=== PATIENT | male | born 2000 | race Caucasian/White ===

== ENCOUNTER 2021-03-23 12:11 | Emergency (ER) | payer OTHER, SELFPAY ==
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
--- NOTE | ~2021-03-23 | XR_ITS ---
EXAMINATION: XR hand RT min 3V INDICATION: Right hand pain, initial encounter TECHNIQUE: Three views of the right hand are obtained. COMPARISON: None available FINDINGS: There is a subtle acute, traumatic, closed fracture of the distal fifth metacarpal. There i s minimal palmar angulation at the fracture site. Soft tissue swelling is seen near the fracture. The joint spaces are normal. No additional acute osseous abnormality is identified. IMPRESSION: 1. Subtle acute fracture of the distal fifth metacarpal with palmar angulation. Reviewed, dictated and finalized at location [facility].
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
[2021-03-23 12:32] VITALS: BP 137/79; PULSE 16; RESP 66; TEMP 36.2; O2SAT 100
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
[2021-03-23 13:09] LABS: Basophils Percent Auto 0.4 % (0.2-1.2); Eosinophils Percent Auto 0.5 % (0-4.4); Hematocrit 39.9 % (42.0-52.0); Hemoglobin 13.5 g/dL (14.0-18.0); Immature Granulocyte Absolute 0.02 K/mm3 (0.00-0.031); Immature Granulocyte Percent A 0.3 % (0-0.5); Lymphocytes Absolute Auto 2.18 K/mm3 (0.9-3.2); Lymphocytes Percent Auto 29.8 % (18.3-44.2); Mean Corpuscular HGB Conc 33.8 g/dl (32-36); Mean Corpuscular Hemoglobin 29.8 pg (26-34); Mean Corpuscular Volume 88.1 fl (80-100); Mean Platelet Volume 10.4 fl (7.4-10.4); Monocytes Absolute Auto 0.4 K/mm3 (0.1-0.6); Monocytes Percent Auto 5.3 % (2.6-8.5); Neutrophils Absolute Auto 4.7 K/mm3 (1.3-6.7); Neutrophils Percent Auto 63.7 % (45.5-73.1); Platelet Count Result 239 k/mm3 (150-375); Red Blood Count 4.53 M/mm3 (4.6-6.20); Red Cell Distribution Width 12.5 % (11.5-14.5); White Blood Count 7.3 K/mm3 (4.5-10.0)
[2021-03-23 13:18] LABS: Alanine Aminotransferase 19 U/L (4-50); Albumin Level 4.3 g/dL (3.5-5.1); Alkaline Phosphatase 81 U/L (38-126); Anion Gap 5 mmol/L (8-16); Aspartate Amino Transferase 28 U/L (17-59); Bilirubin,Total 0.7 mg/dL (0.2-1.3); Blood Urea Nitrogen 9 mg/dL (9-20); Calcium 9.5 mg/dL (8.4-10.2); Carbon Dioxide 29 mmol/L (22-30); Chloride 109 mmol/L (98-107); Estimated CRCL calculation 122 ml/min; Estimated Glomerular Filt Rate > 60; Glucose 92 mg/dL (65-110); Potassium 3.6 mmol/L (3.4-5.0); Sodium 143 mmol/L (137-145)
--- NOTE | 2021-03-23 15:09 | PC.NURSE ---
ED MD AWARE PT REQUESTED PAIN MEDS FROM CT. NO FURTHER ORDERS AT THIS TIME.
[2021-03-23] MEDS: CYCLOBENZAPRINE HCL 10 MG TABLET PO (15:42)
[2021-03-23] MEDS: KETOROLAC 30 MG/ML VIAL (*BKC) IV PUSH (15:42)
--- NOTE | 2021-03-27 11:07 | PC.NURSE ---
LATE ENTRY This note is being entered to document information to the patient's record. The following information was omitted on [03/23/2021], by [Alban Baird RN]. R hand 5th digit aluminum finger splint placed.
== END 2021-03-23 16:35 | disposition home or self-care (01) ==
PROVIDERS: Emergency Provider Emergency Medicine; PCP Family Medicine
DX: S00.93XA Contusion of unspecified part of head, initial encounter (principal); S16.1XXA Strain of muscle, fascia and tendon at neck level, initial encounter; S29.011A Strain of muscle and tendon of front wall of thorax, initial encounter; S62.396A Other fracture of fifth metacarpal bone, right hand, initial encounter for closed fracture; V53.5XXA Driver of pick-up truck or van injured in collision with car, pick-up truck or van in traffic accident, initial encounter
CPT/HCPCS: 29130; 36415; 70450; 71260; 72125; 73130; 74177; 80053; 85025; 96374; 99284; A9270; J1885; Q9967

== ENCOUNTER 2021-09-29 10:58 | Emergency (ER) | payer OTHER, SELFPAY ==
--- NOTE | ~2021-09-29 | XR_ITS ---
XR knee LT min 4V DATE: 09/29/2021 11:36 INDICATION: Left knee laceration by chainsaw TECHNIQUE: 4 views COMPARISON: FINDINGS: There is anterior soft tissue laceration; no radiopaque soft tissue foreign body. No fracture or dislocation or joint effusion. IMPRESSION: Anterior soft tissue laceration; no bony abnormality Reviewed, dictated and finalized at location A.
[2021-09-29 11:07] VITALS: BP 153/96; PULSE 106; RESP 16; TEMP 36.4; O2SAT 100
--- NOTE | 2021-09-29 11:19 | ED.WOUNDLAC ---
HPI - Wound/Laceration General Chief Complaint: Wound/Laceration <BETHANIE Azul Last Filed: 09/29/21 14:23> Stated Complaint: Left Knee Laceration <BETHANIE Azul Last Filed: 09/29/21 14:23> Time Seen by Provider: 09/29/21 11:05 <BETHANIE Azul Last Filed: 09/29/21 14:23> Source: patient <BETHANIE Azul Last Filed: 09/29/21 14:23> Mode of arrival: wheelchair <BETHANIE Azul Last Filed: 09/29/21 14:23> Limitations: no limitations <BETHANIE Azul Last Filed: 09/29/21 14:23> History of Present Illness HPI narrative: This is a 21 year old male that presents to the ER for laceration to the left knee sustained just prior to arrival. Reports he was using a chain saw to cut some branches of a tree. The chainsaw kicked back on him and hit his left knee. He sustained several lacerations to the left knee. He is not up-to-date on tetanus. Reports bleeding and pain to the area. Denies decreased range of motion or numbness. <BETHANIE Azul Last Filed: 09/29/21 14:23> Related Data Allergies/Adverse Reactions: Allergies Allergy/AdvReac Type Severity Reaction Status Date / Time No Known Allergies Allergy Unknown Verified 09/30/21 08:57 <BETHANIE Azul Last Filed: 09/29/21 14:23> Review of Systems Review of Systems: CONSTITUTIONAL: Denies fever SKIN: Reports laceration MUSCULOSKELETAL: Reports joint pain, and myalgia. NEUROLOGIC: Denies numbness <BETHANIE Azul Last Filed: 09/29/21 14:23> All systems reviewed & are unremarkable except as noted in HPI and below <BETHANIE Azul Last Filed: 09/29/21 14:23> [facility] Past Medical History Medical History: Medical History (Updated 09/30/21 @ 00:00 by Background Daemon) Laceration of knee No active medical problems <Naa Quach PA-C - Last Filed: 09/29/21 14:23> Social History Social History: Social History Smoking status: Current every day smoker Tobacco type: cigarettes and e-cigarettes/vaping Alcohol intake: never Substance use: never Substance use type: does not use Additional occupation/education comments: [employer] Gender identity (if verbalized by the patient): Male <Naa Quach PA-C - Last Filed: 09/29/21 14:23> Exam Narrative: GENERAL: Well-appearing, well-nourished, and in mild acute distress due to pain HEAD: Normocephalic, atraumatic. EYES: EOMI. EXTREMITIES: Normal range of motion. No edema. Left anterior knee with with three, 4cm irregular lacerations into subcutaneous tissue SKIN: Warm, dry, no rash. NEURO: No focal deficits. Alert and oriented x3. PSYCH: Normal mood and affect <Naa Quach PA-C - Last Filed: 09/29/21 14:23> Course SENIOR PROGRAMMER/PA Physician Supervision For this patient encounter, I reviewed the SENIOR PROGRAMMER or PA documentation, treatment plan, and medical decision making; and I had [id number] time with this patient. <Tip Clark MD - Last Filed: 09/30/21 09:40> Vital Signs Vital signs: Vital Signs Temperature 97.6 F 09/29/21 11:07 Pulse Rate 106 H 09/29/21 11:07 Respiratory Rate 16 09/29/21 11:07 Blood Pressure 153/96 H 09/29/21 11:07 Pulse Oximetry 100 09/29/21 11:07 Temperature 97.6 F 09/29/21 11:07 Pulse Rate 78 09/29/21 14:50 Respiratory Rate 16 09/29/21 14:50 Blood Pressure 132/88 09/29/21 14:50 Pulse Oximetry 98 09/29/21 14:50 <Naa Quach PA-C - Last Filed: 09/29/21 14:23> Vital Signs Temperature 97.6 F 09/29/21 11:07 Pulse Rate 106 H 09/29/21 11:07 Respiratory Rate 16 09/29/21 11:07 Blood Pressure 153/96 H 09/29/21 11:07 Pulse Oximetry 100 09/29/21 11:07 Temperature 97.6 F 09/29/21 11:07 Pulse Rate 78 09/29/21 14:50 Respiratory Rate 16 09/29/21 14:50 Blood Pressure 132/88 09/29/21 14:50 Pulse Oximetry 98
[2021-09-29] MEDS: diazePAM INJ (*CRX) 10 MG/2 ML SYRINGE 5 MG IM (11:22)
[2021-09-29] MEDS: HYDROcodone/acetaminophen (*CRX) 5-325 MG TABLET 1 TAB PO (13:12)
--- NOTE | 2021-09-29 13:26 | PC.NURSE ---
ANG Jacome in room for suture application.
[2021-09-29 13:27] VITALS: BP 139/105; PULSE 82; RESP 16; O2SAT 98
[2021-09-29] MEDS: TETANUS,DIPHTHERIA,AC PERTUSSIS ADULT (0.5 ML) BOOSTRIX IM (14:35)
[2021-09-29 14:50] VITALS: BP 132/88; PULSE 78; RESP 16; O2SAT 98
== END 2021-09-29 14:50 | disposition home or self-care (01) ==
PROVIDERS: Emergency Provider Emergency Medicine
DX: S81.012A Laceration without foreign body, left knee, initial encounter (principal); F17.210 Nicotine dependence, cigarettes, uncomplicated; F17.290 Nicotine dependence, other tobacco product, uncomplicated; Z23 Encounter for immunization; W31.89XA Contact with other specified machinery, initial encounter
CPT/HCPCS: 12004; 73564; 90471; 90715; 96372; 99283; A9270; J3360

== ENCOUNTER 2021-09-30 08:47 | Emergency (ER) | payer OTHER, SELFPAY ==
[2021-09-30 08:53] VITALS: BP 137/84; PULSE 60; RESP 18; TEMP 36.8; O2SAT 100
--- NOTE | 2021-09-30 10:09 | ED.WOUNDLAC ---
HPI - Wound/Laceration General Chief Complaint: Wound/Laceration <Naa Quach PA-C - Last Filed: 09/30/21 10:18> Stated Complaint: pain meds don't work seen yesterday <BETHANIE Azul Last Filed: 09/30/21 10:18> Time Seen by Provider: 09/30/21 09:13 <BETHANIE Azul Last Filed: 09/30/21 10:18> Source: patient <BETHANIE Azul Last Filed: 09/30/21 10:18> Mode of arrival: wheelchair <BETHANIE Azul Last Filed: 09/30/21 10:18> Limitations: no limitations <BETHANIE Azul Last Filed: 09/30/21 10:18> History of Present Illness HPI narrative: This is a 21-year-old male that presents to the emergency department for left knee pain. Patient was seen in the ED by myself yesterday for a laceration to the left anterior knee. Reports he had taken his [place] with little relief. Presents today for worsening pain. His last dose of pain medication was at 5 AM. Denies fever, erythema, edema, decreased range of motion, or numbness. <Naa Quach PA-C - Last Filed: 09/30/21 10:18> Related Data Allergies/Adverse Reactions: Allergies Allergy/AdvReac Type Severity Reaction Status Date / Time No Known Allergies Allergy Unknown Verified 09/30/21 08:57 <BETHANIE Azul Last Filed: 09/30/21 10:18> Review of Systems Review of Systems: CONSTITUTIONAL: Denies fever SKIN: Reports laceration MUSCULOSKELETAL: Reports joint pain, and myalgia. NEUROLOGIC: Denies numbness <BETHANIE Azul Last Filed: 09/30/21 10:18> All systems reviewed & are unremarkable except as noted in HPI and below <BETHANIE Azul Last Filed: 09/30/21 10:18> [facility] Past Medical History Medical History: Medical History (Updated 09/30/21 @ 10:15 by Naa Quach PA-C) Laceration of knee No active medical problems <Naa Quach PA-C - Last Filed: 09/30/21 10:18> Social History Social History: Social History Smoking status: Current every day smoker Tobacco type: cigarettes and e-cigarettes/vaping Alcohol intake: never Substance use: never Substance use type: does not use Additional occupation/education comments: [employer] Gender identity (if verbalized by the patient): Male <Naa Quach PA-C - Last Filed: 09/30/21 10:18> Exam Narrative: GENERAL: Well-appearing, well-nourished, and in no acute distress. HEAD: Normocephalic, atraumatic. EYES: EOMI. EXTREMITIES: Normal range of motion. No edema, erythema or warmth of the lacerations. No abnormal drainage. Sutures are intact. Normal DP pulses. Normal sensation SKIN: Warm, dry, no rash. NEURO: No focal deficits. Alert and oriented x3. PSYCH: Normal mood and affect <Naa Quach PA-C - Last Filed: 09/30/21 10:18> Course ACOUSTIC WARFARE ANALYST/PA Physician Supervision For this patient encounter, I reviewed the ACOUSTIC WARFARE ANALYST or PA documentation, treatment plan, and medical decision making; and I had [id number] time with this patient. <Tip Clark MD - Last Filed: 09/30/21 13:50> Vital Signs Vital signs: Vital Signs Temperature 98.2 F 09/30/21 08:53 Pulse Rate 60 09/30/21 08:53 Respiratory Rate 18 09/30/21 08:53 Blood Pressure 137/84 09/30/21 08:53 Pulse Oximetry 100 09/30/21 08:53 Temperature 98.2 F 09/30/21 08:53 Pulse Rate 60 09/30/21 08:53 Respiratory Rate 18 09/30/21 08:53 Blood Pressure 137/84 09/30/21 08:53 Pulse Oximetry 100 09/30/21 08:53 <Naa Quach PA-C - Last Filed: 09/30/21 10:18> Vital Signs Temperature 98.2 F 09/30/21 08:53 Pulse Rate 60 05/02/22 08:53 Respiratory Rate 18 09/30/21 08:53 Blood Pressure 137/84 09/30/21 08:53 Pulse Oximetry 100 09/30/21 08:53 Temperature 98.2 F 09/30/21 08:53 Pulse Rate 60 09/30/21 08:53 Respiratory Rate 18 09/30/21 08:53 Blood Pressure 137/84 09/30/21 08:53 Pulse
[2021-09-30] MEDS: ACETAMINOPHEN 500 MG TABLET 1000 MG PO (10:12)
[2021-09-30] MEDS: KETOROLAC (*BKC) 60 MG/2 ML VIAL IM (10:13)
[2021-09-30] MEDS: diazePAM INJ (*CRX) 10 MG/2 ML SYRINGE 5 MG IM (10:13)
== END 2021-09-30 10:34 | disposition home or self-care (01) ==
PROVIDERS: Emergency Provider Emergency Medicine
DX: S81.012D Laceration without foreign body, left knee, subsequent encounter (principal); F17.210 Nicotine dependence, cigarettes, uncomplicated; F17.290 Nicotine dependence, other tobacco product, uncomplicated; W29.3XXD Contact with powered garden and outdoor hand tools and machinery, subsequent encounter
CPT/HCPCS: 96372; 99284; A9270; J1885; J3360

== ENCOUNTER 2021-10-03 18:02 | Emergency (ER) | payer OTHER, SELFPAY ==
[2021-10-03 18:12] VITALS: BP 118/48; PULSE 63; RESP 16; TEMP 36.6; O2SAT 100
--- NOTE | 2021-10-03 18:20 | ED.LOWEXIN ---
HPI - Extremity Injury (Lower) General Chief Complaint: Wound/Laceration Stated Complaint: Laceration on left knee Time Seen by Provider: 10/03/21 18:20 Source: patient Mode of arrival: ambulatory Limitations: no limitations History of Present Illness HPI Narrative: 21-year-old male presents to [facility] for wound check. Patient's girlfriend reports that she does his wound changes. Today she noticed yellow pus from wound. Patient was in the ER on September 29 and had several sutures placed, approximately 15, after laceration caused by a chainsaw. Patient does have follow-up appoint with his primary care physician on October 15. He reports that he is out of hydrocodone, and pain has since been severe. He also reports that he is taking Keflex 3 times a day. He is ambulatory with crutches. Afebrile. All systems reviewed and negative except as noted above. Related Data Allergies Allergy/AdvReac Type Severity Reaction Status Date / Time No Known Allergies Allergy Unknown Verified 09/30/21 08:57 Review of Systems Review of Systems: CONSTITUTIONAL: Denies fever, chills, or sweats. EYES: Denies visual changes, redness, or discharge. ENT: Denies rhinorrhea, congestion, sore throat, or otalgia. CARDIOVASCULAR: Denies chest pain, palpitations, or edema. RESPIRATORY: Denies cough or dyspnea. GASTROINTESTINAL: Denies abdominal pain, nausea, vomiting, or diarrhea. GENITOURINARY: Denies dysuria or hematuria. SKIN: Denies rash or itching. Reports continued pain to left knee from laceration. Reports yellow drainage from wound. MUSCULOSKELETAL: Denies back pain, joint pain, or myalgia. NEUROLOGIC: Denies headache, numbness, or weakness. PSYCHIATRIC: Denies anxiety or depression. All other systems reviewed are negative, except as documented in HPI. [facility] Past Medical History Medical History (Updated 10/03/21 @ 18:29 by Alyssa Colon NP) Laceration of knee No active medical problems Social History Social History Smoking status: Current every day smoker Tobacco type: cigarettes and e-cigarettes/vaping Alcohol intake: never Substance use: never Substance use type: does not use Additional occupation/education comments: [employer] Gender identity (if verbalized by the patient): Male Comments At time of signature, agree with nursing past medical, surgical, social and family history. There is no relevant family history pertinent to the presenting complaint. Exam Narrative: GENERAL: This is a well-nourished, well-developed patient, in no apparent distress. HEAD: normocephalic, atraumatic. EYES: PERRL. Sclera clear/white. Vision is grossly intact. EARS: External ears normal NOSE: External nose normal NECK: Neck supple, non-tender without lymphadenopathy, masses or thyromegaly. CARDIOVASCULAR: Regular rate and rhythm without murmurs, gallops, or rubs. RESPIRATORY: Clear to auscultation. Breath sounds equal bilaterally. No wheezes, rales, or rhonchi. SKIN: warm, Dry, with no suspicious lesions or rash, good texture and turgor. There is a healing irregular laceration to anterior aspect of left knee. 14-15 sutures were placed. There is scant yellow drainage. There is swelling and mild erythema surrounding wound. NEURO: awake, alert, and oriented to person, place and time. There were no obvious focal neurologic abnormalities. EXTREMITIES: Normal range of motion to all extremities. Course Course Level of Care: Express Care Visit Vital Signs Vital signs: Vital Signs Temperature 36.6 C 10/03/21 18:12 Pulse Rate 63 10/03/21 18:12 Respiratory Rate 16 10/03/21 18:12 Blood Pressure 118/48 L 10/03/21 18:12 Pulse Oximetry 100 10/03/21 18:12 Temperature 36.6 C 10/03/21 18:12 Pulse Rate 63 10/03/21 18:12 Respiratory Rate 16 10/03/21 18:12 Blood Pressure 118/48 L 10/03/21 18:12 Pulse Oximetry 100 10/03/21 18:12 Reviewed MDM
== END 2021-10-03 18:33 | disposition home or self-care (01) ==
PROVIDERS: Emergency Provider Nurse Practitioner Family
DX: S81.012D Laceration without foreign body, left knee, subsequent encounter (principal); F17.200 Nicotine dependence, unspecified, uncomplicated; W45.8XXD Other foreign body or object entering through skin, subsequent encounter
CPT/HCPCS: 99213; G0463

== ENCOUNTER 2022-03-22 19:19 | Emergency (ER) | payer OTHER, SELFPAY ==
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
[2022-03-22 19:29] VITALS: BP 99/51; PULSE 86; RESP 16; TEMP 37.8; O2SAT 99
[2022-03-22] MEDS: ONDANSETRON HCL ODT 4 MG TABLET PO (19:57)
== END 2022-03-22 20:33 | disposition home or self-care (01) ==
PROVIDERS: Emergency Provider Nurse Practitioner Family
DX: J02.9 Acute pharyngitis, unspecified (principal); R11.2 Nausea with vomiting, unspecified; Z20.822 Contact with and (suspected) exposure to COVID-19; F17.210 Nicotine dependence, cigarettes, uncomplicated; F17.290 Nicotine dependence, other tobacco product, uncomplicated
CPT/HCPCS: 87081; 87426; 87804; 87880; 99213; A9270; C9803; G0463

== ENCOUNTER 2022-04-01 11:37 | Emergency (ER) | payer OTHER, SELFPAY ==
--- NOTE | ~2022-04-01 | XR_ITS ---
EXAMINATION: XR chest 2V DATE: 04/01/2022 12:48 INDICATION: Cough. TECHNIQUE: Frontal and lateral views of the chest were obtained on 3 radiographs. COMPARISON: Chest CT 03/23/2021 FINDINGS: The chest demonstrates clear lungs without pneumonia, pleural effusion, or pneumothorax. Th e heart size is normal. IMPRESSION: 1. No acute cardiopulmonary disease. Reviewed, dictated and finalized at location A.
[2022-04-01 11:46] VITALS: BP 108/53; PULSE 108; RESP 16; TEMP 37.7; O2SAT 100
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
== END 2022-04-01 13:05 | disposition home or self-care (01) ==
PROVIDERS: Emergency Provider Nurse Practitioner
DX: J10.1 Influenza due to other identified influenza virus with other respiratory manifestations (principal); F17.210 Nicotine dependence, cigarettes, uncomplicated; Z20.822 Contact with and (suspected) exposure to COVID-19
CPT/HCPCS: 71046; 87081; 87426; 87804; 87880; 99213; C9803; G0463

== ENCOUNTER 2022-06-29 08:44 | Emergency (ER) | payer OTHER, SELFPAY ==
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
[2022-06-29 08:53] VITALS: BP 133/73; PULSE 59; RESP 16; TEMP 36.2; O2SAT 100
== END 2022-06-29 09:29 | disposition home or self-care (01) ==
PROVIDERS: Emergency Provider Nurse Practitioner
DX: J06.9 Acute upper respiratory infection, unspecified (principal); Z20.822 Contact with and (suspected) exposure to COVID-19; F17.210 Nicotine dependence, cigarettes, uncomplicated; F17.290 Nicotine dependence, other tobacco product, uncomplicated
CPT/HCPCS: 87081; 87426; 87804; 87880; 99213; C9803; G0463

== ENCOUNTER 2022-08-28 17:43 | Emergency (ER) | payer OTHER, SELFPAY ==
[2022-08-28 17:57] VITALS: BP 118/59; PULSE 57; RESP 16; TEMP 36.4; O2SAT 100
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
== END 2022-08-28 18:50 | disposition home or self-care (01) ==
PROVIDERS: Emergency Provider Nurse Practitioner; PCP Nurse Practitioner Family
DX: B34.9 Viral infection, unspecified (principal); Z20.822 Contact with and (suspected) exposure to COVID-19; F17.290 Nicotine dependence, other tobacco product, uncomplicated
CPT/HCPCS: 87081; 87426; 87804; 87880; 99213; C9803; G0463

== ENCOUNTER 2022-12-15 11:40 | Emergency (ER) | payer OTHER, SELFPAY ==
[2022-12-15 11:50] VITALS: BP 138/87; PULSE 61; RESP 16; TEMP 37.1; O2SAT 99
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
== END 2022-12-15 12:28 | disposition home or self-care (01) ==
PROVIDERS: Emergency Provider Nurse Practitioner; PCP Nurse Practitioner Family
DX: K04.7 Periapical abscess without sinus (principal); F17.210 Nicotine dependence, cigarettes, uncomplicated; F17.290 Nicotine dependence, other tobacco product, uncomplicated
CPT/HCPCS: 99213; G0463

== ENCOUNTER 2022-12-31 08:09 | Emergency (ER) | payer OTHER, SELFPAY ==
[2022-12-31 08:16] VITALS: BP 119/60; PULSE 82; RESP 16; TEMP 37.2; O2SAT 99
[2022-12-31 08:17] VITALS: BP 119/60; PULSE 82; RESP 16; TEMP 37.2; O2SAT 99
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
== END 2022-12-31 08:44 | disposition home or self-care (01) ==
PROVIDERS: Emergency Provider Nurse Practitioner Family; PCP Nurse Practitioner Family
DX: H10.32 Unspecified acute conjunctivitis, left eye (principal); F17.210 Nicotine dependence, cigarettes, uncomplicated; F17.290 Nicotine dependence, other tobacco product, uncomplicated
CPT/HCPCS: 99213; G0463

== ENCOUNTER 2023-02-01 22:13 | Emergency (ER) | payer OTHER, SELFPAY ==
[2023-02-01 22:16] VITALS: BP 142/84; PULSE 72; RESP 18; TEMP 36.4; O2SAT 99
--- NOTE | 2023-02-01 23:03 | PC.NURSE ---
Pt states wait time too long, pt leaving prior to being seen.
== END 2023-02-01 23:44 | disposition left against medical advice (07) ==
LOC: ANHED 23:08
PROVIDERS: PCP Nurse Practitioner Family
DX: K08.89 Other specified disorders of teeth and supporting structures (principal)
CPT/HCPCS: 99199

== ENCOUNTER 2023-02-02 09:14 | Emergency (ER) | payer OTHER, SELFPAY ==
[2023-02-02 09:23] VITALS: BP 143/80; PULSE 72; RESP 14; TEMP 36.6; O2SAT 100
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
== END 2023-02-02 09:50 | disposition home or self-care (01) ==
PROVIDERS: Emergency Provider Nurse Practitioner; PCP Nurse Practitioner Family
DX: K04.7 Periapical abscess without sinus (principal); F17.210 Nicotine dependence, cigarettes, uncomplicated; F17.290 Nicotine dependence, other tobacco product, uncomplicated
CPT/HCPCS: 99213; G0463

== ENCOUNTER 2024-02-09 08:19 | Emergency (ER) | payer SELFPAY ==
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
[2024-02-09 08:29] VITALS: BP 116/70; PULSE 65; RESP 16; TEMP 36.6; O2SAT 99
[2024-02-09 11:13] LABS: EDINFLUASCREEN Negative (Negative); EDINFLUBSCREEN Negative (Negative); EDSTREPNEGPOS1 Negative (Negative)
[2024-02-10 08:25] LABS: EDCOVIDSCREEN Negative (Negative)
== END 2024-02-09 09:11 | disposition home or self-care (01) ==
PROVIDERS: Emergency Provider Nurse Practitioner Family; PCP Nurse Practitioner Family
DX: J06.9 Acute upper respiratory infection, unspecified (principal); Z20.822 Contact with and (suspected) exposure to COVID-19; F17.210 Nicotine dependence, cigarettes, uncomplicated; F17.290 Nicotine dependence, other tobacco product, uncomplicated
CPT/HCPCS: 87081; 87635; 87804; 87880; 99213; G0463

== ENCOUNTER 2024-04-29 08:43 | Emergency (ER) | payer SELFPAY ==
[2024-04-29 08:47] VITALS: BP 123/59; PULSE 49; RESP 16; TEMP 36.2; O2SAT 98
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
== END 2024-04-29 10:01 | disposition home or self-care (01) ==
PROVIDERS: Emergency Provider Nurse Practitioner Family; PCP Nurse Practitioner Family
DX: S05.01XA Injury of conjunctiva and corneal abrasion without foreign body, right eye, initial encounter (principal); X58.XXXA Exposure to other specified factors, initial encounter
CPT/HCPCS: 99213; G0463